=== PATIENT | male | born 1965 | race Caucasian/White ===

== ENCOUNTER 2017-04-05 19:11 | Emergency (ER) | payer BC ==
--- NOTE | 2017-04-05 20:22 | ED CLINICAL REPORT ---
Clinical Report - Physicians/Mid Levels [facility] [address] [place] [address] 04/05/2017 19:12 Patient: SHAWN PEOPLES Time Seen: 1927. Arrived- By private vehicle. Historian- patient. HISTORY OF PRESENT ILLNESS Chief Complaint: (reports the shaft of his penis inverted and "sucked in" while lifting a heavy object). This started today. It was abrupt in onset and has been intermittent but is gone now. The problem is described as severe. Is now gone. No penile discharge, urinary frequency, genital lesion, testicular pain or urgency of urination. No flank pain. Sexual history is noncontributory. Similar symptoms previously: None. Recent medical care: Not recently seen/assessed. REVIEW OF SYSTEMS No fever. All systems otherwise negative, except as recorded above. PAST HISTORY See nurses notes. Medications: PredniSONE Oral. Allergies: None. SOCIAL HISTORY Smoker- current status unknown. No alcohol use or drug use. No recent travel. Is a local resident. ADDITIONAL NOTES The nursing notes have been reviewed. PHYSICAL EXAM Vital Signs: 04/05/2017 19:20 BP: 136/86. HR: 78. RR: 17. O2 saturation: 98%. Temp: 98.1 F. Pain level now: 0/10. Oxygen saturation normal. Appearance: Alert. Oriented X3. No acute distress. CVS: Heart sounds normal. Respiratory: No respiratory distress. Breath sounds normal. Abdomen: Soft and nontender. Bowel sounds normal. : Normal genitalia. Testes descended. Moderate right-sided and reducible hernia mass. No tenderness or erythema. No urethral discharge, genital lesion or tenderness present. (circumcised). Skin: Skin warm and dry. Normal skin color. No rash. Normal skin turgor. Extremities: Extremities exhibit normal ROM. No lower extremity edema. Neuro: Oriented X 3. No motor deficit. No sensory deficit. PROGRESS AND PROCEDURES Course of Care: the patient is a 51-year-old male with past medical history significant for right-sided inguinal hernia presenting for evaluation of what he describes as Inversion of his penis. Patient has a normal external male genitalia examination except for right-sided inguinal hernia. Hernia is moderate in size. Based on the patient's history and examination, patient likely had an increase in size of the hernia. The scrotum had likely covered of the patient's shaft. Patient without any signs of injury or discomfort at this time. Hernia is reducible. Because of the patient's resolved symptoms and reducible hernia, do not feel patient requires imaging or laboratory studies at this time. Discussed with the patient is workup here in the emergency department including diagnosis, home care, follow-up, and return precautions. All questions have been answered. The patient expressed understanding of these instructions and was agreeable to them. Offered patient urology follow up but states he will follow up with his surgeon. States he was scheduled for a hernia repair twice but missed his appointments. Disposition: Discharged. Condition: good. CLINICAL IMPRESSION Recurrent right inguinal hernia (acute). No obstruction or gangrene. INSTRUCTIONS Warnings: GENERAL WARNINGS: Return or contact your physician immediately if your condition worsens or changes unexpectedly, if not improving as expected, or if other problems arise. Specifically return if pain, vomiting, bleeding, breathing difficulty or fever. Your Current Medications: CONTINUE TAKING THE FOLLOWING MEDICATIONS: PredniSONE Oral. Follow-up: Return to the emergency department as needed. Follow up with your doctor in three days. Reason for referral: recheck today's concerns. Summary of care provided to patient via paper. Screening today revealed the patient's blood pressure to be in the normal range. The patient should follow up with a primary care provider for blood pressure management. Understanding of the discharge instructions verbalized by patient. (Electronically signed by Carlin Chirinos Dr. 04/08/2017 7:19)
--- NOTE | 2017-04-05 20:22 | ED NURSING NOTES ---
Clinical Report - Nurses [facility] [address] [place] [address] 04/05/2017 19:12 Patient: SHAWN PEOPLES TRIAGE Triage time 19:20 Apr 05 2017. Chief Complaint: (pt with known inguinal hernia, pt reports having "a bulge for a year" rayo one hour ago "it sucked back in" pt sees Dr Pack). Alert. No acute distress. SEPSIS SCREEN: Sepsis Screen. Negative (no infection suspected/documented). --19:26 Margarita Jacome R.N. 19:20 04/05/17. BP: 136/86. HR: 78. RR: 17. O2 saturation: 98%. Temp: 98.1 F. Pain level now: 0/10. --19:26 Margarita Jacome R.N. Weight: 60.7 kg stated. Height/Length: 71 inches Per Patient. BMI: 18.7. --19:23 Margarita Jacome R.N. Medications PredniSONE Oral. --19:22 Margarita Jacome R.N. Medication/allergy information source: the patient. --19:26 Margarita Jacome R.N. Allergies None. --19:22 Margarita Jacome R.N. History Arrived by private vehicle. Historian: patient. Accompanied by family. This started just prior to arrival. Treatment RETIREMENT SALES CONSULTANT: None. PAST MEDICAL HX: Immunizations: up-to-date. SOCIAL HX: Smoker- current status unknown (cigarette). Occasional alcohol use. No drug use. No infectious disease exposure. No known contact with a sick individual. ABUSE ASSESSMENT: No report of abuse. SELF HARM ASSESSMENT: A self harm assessment was performed. The patient answered "no" to the question "Do you have thoughts of harming or killing yourself?". FALL RISK ASSESSMENT: Fall risk assessment completed. No fall risk identified. NUTRITIONAL RISK ASSESSMENT: The nutritional risk assessment revealed no deficiencies. FUNCTIONAL ASSESSMENT: Functional assessment: no impairments noted. LEARNING NEEDS ASSESSMENT: The learning needs assessment revealed no barriers. SKIN INTEGRITY ASSESSMENT: Skin integrity risk assessment completed. No skin integrity risk identified. --19: Margarita Jacome R.N. PROBLEMS: Abdominal Pain. Otitis Media. Ruptured tympanic membrane. Ear Infection. Chronic otitis media. Hernia. Cancer. Tip Amputation, Finger. --19: Margarita Jacome R.N. ADDITIONAL SURGERIES: Left neck for cancer. --19:23 Margarita Jacome R.N. Interventions ID band on patient. --19: Margarita Jacome R.N. PHYSICAL ASSESSMENT Ambulatory to room. Patient gowned. GENERAL / NEURO / PSYCH: Alert. Oriented X 4. Appears in no acute distress. HEENT: Mucous membranes are pink. RESPIRATORY: Respirations not labored. CVS: Capillary refill less than 2 seconds. GI / : Abdomen soft and nontender. SKIN: Skin is warm and dry. --19: Margarita Jacome R.N. NURSING PROGRESS NOTES Patient identifiers checked. Call light placed in reach. Side rails up x 1. Bed placed in lowest position. Brakes of bed on. Patient ready for evaluation- chart flagged. Patient waiting for evaluation. --19:26 Margarita Jacome R.N. DISPOSITION / DISCHARGE No learning barriers present. Discharge instructions provided and reviewed with the patient and spouse. Patient and spouse verbalized understanding. Written instructions provided in Vietnamese. The patient was discharged by the physician. He was discharged home and accompanied by spouse. He left the Emergency Department ambulatory and via private vehicle. --20:33 Margarita Jacome R.N. 20:32 04/05/17. BP: 134/78. HR: 71. RR: 17. O2 saturation: 99%. Temp: deferred. Pain level now: 0/10. --20:33 Margarita Jacome R.N. Locked/Released at 04/05/2017 22:37 by Margarita Jacome R.N.
--- NOTE | 2017-04-05 20:22 | ED NURSING NOTES ---
Clinical Report - Nurses [facility] [address] [place] [place] [address] 04/05/2017 19:12 Patient: SHAWN PEOPLES TRIAGE Triage time 19:20 Apr 05 2017. Chief Complaint: (pt with known inguinal hernia, pt reports having "a bulge for a year" rayo one hour ago "it sucked back in" pt sees Dr Pack). Alert. No acute distress. SEPSIS SCREEN: Sepsis Screen. Negative (no infection suspected/documented). --19:26 Margarita Jacome R.N. 19:20 04/05/17. BP: 136/86. HR: 78. RR: 17. O2 saturation: 98%. Temp: 98.1 F. Pain level now: 0/10. --19:26 Margarita Jacome R.N. Weight: 60.7 kg stated. Height/Length: 71 inches Per Patient. BMI: 18.7. --19:23 Margarita Jacome R.N. Medications PredniSONE Oral. --19:22 Margarita Jacome R.N. Medication/allergy information source: the patient. --19:26 Margarita Jacome R.N. Allergies None. --19:22 Margarita Jacome R.N. History Arrived by private vehicle. Historian: patient. Accompanied by family. This started just prior to arrival. Treatment GARMENT SEWING MACHINE OPERATOR: None. PAST MEDICAL HX: Immunizations: up-to-date. SOCIAL HX: Smoker- current status unknown (cigarette). Occasional alcohol use. No drug use. No infectious disease exposure. No known contact with a sick individual. ABUSE ASSESSMENT: No report of abuse. SELF HARM ASSESSMENT: A self harm assessment was performed. The patient answered "no" to the question "Do you have thoughts of harming or killing yourself?". FALL RISK ASSESSMENT: Fall risk assessment completed. No fall risk identified. NUTRITIONAL RISK ASSESSMENT: The nutritional risk assessment revealed no deficiencies. FUNCTIONAL ASSESSMENT: Functional assessment: no impairments noted. LEARNING NEEDS ASSESSMENT: The learning needs assessment revealed no barriers. SKIN INTEGRITY ASSESSMENT: Skin integrity risk assessment completed. No skin integrity risk identified. --19: Margarita Jacome R.N. PROBLEMS: Abdominal Pain. Otitis Media. Ruptured tympanic membrane. Ear Infection. Chronic otitis media. Hernia. Cancer. Tip Amputation, Finger. --19: Margarita Jacome R.N. ADDITIONAL SURGERIES: Left neck for cancer. --19:23 Margarita Jacome R.N. Interventions ID band on patient. --19: Margarita Jacome R.N. PHYSICAL ASSESSMENT Ambulatory to room. Patient gowned. GENERAL / NEURO / PSYCH: Alert. Oriented X 4. Appears in no acute distress. HEENT: Mucous membranes are pink. RESPIRATORY: Respirations not labored. CVS: Capillary refill less than 2 seconds. GI / : Abdomen soft and nontender. SKIN: Skin is warm and dry. --19: Margarita Jacome R.N. NURSING PROGRESS NOTES Patient identifiers checked. Call light placed in reach. Side rails up x 1. Bed placed in lowest position. Brakes of bed on. Patient ready for evaluation- chart flagged. Patient waiting for evaluation. --19:26 Margarita Jacome R.N. DISPOSITION / DISCHARGE No learning barriers present. Discharge instructions provided and reviewed with the patient and spouse. Patient and spouse verbalized understanding. Written instructions provided in Telugu. The patient was discharged by the physician. He was discharged home and accompanied by spouse. He left the Emergency Department ambulatory and via private vehicle. --20:33 Margarita Jacome R.N. 20:32 04/05/17. BP: 134/78. HR: 71. RR: 17. O2 saturation: 99%. Temp: deferred. Pain level now: 0/10. --20:33 Margarita Jacome R.N. Locked/Released at 04/05/2017 22:37 by Margarita Jacome R.N.
--- NOTE | 2017-04-08 07:19 | ED DISCHARGE INSTRUCTIONS ---
Patient: SHAWN PEOPLES General Instructions [facility] VisitID: [id number] [address] [place] [address] 51y, M Registration Date/Time: 04/05/2017 Recurrent right inguinal hernia (acute). No obstruction or gangrene. INSTRUCTIONS Warnings: GENERAL WARNINGS: Return or contact your physician immediately if your condition worsens or changes unexpectedly, if not improving as expected, or if other problems arise. Specifically return if pain, vomiting, bleeding, breathing difficulty or fever. Your Current Medications: CONTINUE TAKING THE FOLLOWING MEDICATIONS: PredniSONE Oral. Follow-up: Return to the emergency department as needed. Follow up with your doctor in three days. Reason for referral: recheck today's concerns. Summary of care provided to patient via paper. Screening today revealed the patient's blood pressure to be in the normal range. The patient should follow up with a primary care provider for blood pressure management. Understanding of the discharge instructions verbalized by patient. ADDITIONAL INFORMATION Hernia [Adult] A hernia is a bulge of the intestines or surrounding tissues through a tear in the muscle of the abdomen or groin. This may occur as a result of excessive coughing, heavy lifting or being overweight. It can also occur at the site of prior surgery. When a hernia first appears it may be painful due to stretching and tearing of the muscle fibers. When you lie down, the bulge should reduce in size or disappear completely. If it does not, and you are unable to flatten it with your hand, medical attention is needed at once. Home Care: Avoid heavy lifting and straining or any activities that cause pain in the hernia. Follow Up with your physician as directed by our staff. Get Prompt Medical Attention if any of the following occur: Increasing size of the hernia Increasing pain in the hernia A hernia that does not get smaller when you lie down Hardening of the hernia Abdominal swelling, fever or repeated vomiting Pain moves to the lower right abdomen (just below the waistline) or spreads to the back You have been given the following additional information: Hernia (Inguinal, Ventral, Umbilical) (Electronically signed by Carlin Chirinos Dr. 04/08/2017 7:19)
--- NOTE | 2017-04-08 07:19 | ED DISCHARGE INSTRUCTIONS ---
Patient: SHAWN PEOPLES General Instructions [facility] VisitID: [id number] [address] [place] [address] 51y, M Registration Date/Time: 04/05/2017 Recurrent right inguinal hernia (acute). No obstruction or gangrene. INSTRUCTIONS Warnings: GENERAL WARNINGS: Return or contact your physician immediately if your condition worsens or changes unexpectedly, if not improving as expected, or if other problems arise. Specifically return if pain, vomiting, bleeding, breathing difficulty or fever. Your Current Medications: CONTINUE TAKING THE FOLLOWING MEDICATIONS: PredniSONE Oral. Follow-up: Return to the emergency department as needed. Follow up with your doctor in three days. Reason for referral: recheck today's concerns. Summary of care provided to patient via paper. Screening today revealed the patient's blood pressure to be in the normal range. The patient should follow up with a primary care provider for blood pressure management. Understanding of the discharge instructions verbalized by patient. ADDITIONAL INFORMATION Hernia [Adult] A hernia is a bulge of the intestines or surrounding tissues through a tear in the muscle of the abdomen or groin. This may occur as a result of excessive coughing, heavy lifting or being overweight. It can also occur at the site of prior surgery. When a hernia first appears it may be painful due to stretching and tearing of the muscle fibers. When you lie down, the bulge should reduce in size or disappear completely. If it does not, and you are unable to flatten it with your hand, medical attention is needed at once. Home Care: Avoid heavy lifting and straining or any activities that cause pain in the hernia. Follow Up with your physician as directed by our staff. Get Prompt Medical Attention if any of the following occur: Increasing size of the hernia Increasing pain in the hernia A hernia that does not get smaller when you lie down Hardening of the hernia Abdominal swelling, fever or repeated vomiting Pain moves to the lower right abdomen (just below the waistline) or spreads to the back You have been given the following additional information: Hernia (Inguinal, Ventral, Umbilical) (Electronically signed by Carlin Chirinos Dr. 04/08/2017 7:19)
--- NOTE | 2017-04-08 07:20 | ED MAR SUMMARY ---
..... Medication Administration Record [facility] [address] [place], [place] [id number] Patient: SHAWN PEOPLES Visit ID: [id number] 51y, M Weight: 60.7 kg Height/Length: 71 in BMI: 18.7 ALLERGIES: None
--- NOTE | 2017-04-08 07:20 | ED MED RECONCILIATION SUMMARY ---
Patient: SHAWN PEOPLES Medication Reconciliation Report [facility] VisitID: [id number] [address] [place] [address] 51y, M Registration Date/Time: 04/05/2017 Weight: 60.7 kg Height/Length: 71 in. BMI: 18.7 ALLERGIES: None The patient's Home Medications are listed below: CONTINUE TAKING THE FOLLOWING MEDICATIONS: PredniSONE Oral The source(s) of the original Home Medication information: patient The following Medications were given to the patient in the Emergency Department: None. The following Medications were prescribed to the patient: None.
--- NOTE | 2017-04-08 07:20 | ED MED RECONCILIATION SUMMARY ---
Patient: SHAWN PEOPLES Medication Reconciliation Report [facility] VisitID: [id number] [address] [place] [address] 51y, M Registration Date/Time: 04/05/2017 Weight: 60.7 kg Height/Length: 71 in. BMI: 18.7 ALLERGIES: None The patient's Home Medications are listed below: CONTINUE TAKING THE FOLLOWING MEDICATIONS: PredniSONE Oral The source(s) of the original Home Medication information: patient The following Medications were given to the patient in the Emergency Department: None. The following Medications were prescribed to the patient: None.
--- NOTE | 2017-04-08 07:20 | ED MAR SUMMARY ---
..... Medication Administration Record [facility] [address] [place], [place] [id number] Patient: SHAWN PEOPLES Visit ID: [id number] 51y, M Weight: 60.7 kg Height/Length: 71 in BMI: 18.7 ALLERGIES: None
== END 2017-04-05 20:33 | disposition home or self-care (01) ==
LOC: ED SRH 19:11
DX: K40.91 Unilateral inguinal hernia, without obstruction or gangrene, recurrent (principal); Z79.52 Long term (current) use of systemic steroids